=== PATIENT | female | born 1990 | race Caucasian/White ===

== ENCOUNTER 2018-03-29 10:11 | Emergency (ER) | payer OTHER ==
--- NOTE | 2018-03-29 10:37 | EDPHY ---
H & P Stated Complaint: wants mental health exam, SI Source: Patient Exam Limitations: No limitations - Personal History LMP (Females 10-55): Over 28 Days Ago Current Tetanus/Diphtheria Vaccine: Unsure Current Tetanus Diphtheria and Acellular Pertussis (TDAP): Unsure - Medical/Surgical History Hx Asthma: No Hx Chronic Respiratory Disease: No Hx Diabetes: No Hx Cardiac Disease: No Hx Renal Disease: No Hx Cirrhosis: No Hx Alcoholism: No Hx HIV/AIDS: No Hx Splenectomy or Spleen Trauma: No Other PMH: depression/anxiety not diagnosed - Family History Significant Family History: No pertinent family hx - Social History Smoking Status: Never smoked Alcohol Use: Sober Drug Use: Marijuana Time Seen by Provider: 03/29/18 10:31 HPI/ROS: CHIEF COMPLAINT: Suicidal ideations HISTORY OF PRESENT ILLNESS: Patient is a 27-year-old female who he reports having history of mild depression but no formal diagnosis and no medications. Her symptoms primarily began a year ago after the break-up of her boyfriend of 5 years. 1 week ago he saw picture of this boy with a new girlfriend and this made her extremely depressed. On Thursday she was playing with her roommates hunting rifle and trying to figure out how to shoot herself. She states that she chickened out. She has remained depressed however in today brought herself to the emergency department. She states that she has been drinking more heavily recently. No other drugs or substances. Severity: Moderate Modifying factors: None REVIEW OF SYSTEMS: Constitutional: denies: chills, fever, recent illness, recent injury EENTM: denies: blurred vision, double vision, nose congestion Respiratory: denies: cough, shortness of breath Cardiac: denies: chest pain, irregular heart rate, lightheadedness, palpitations Gastrointestinal/Abdominal: denies: abdominal pain, diarrhea, nausea, vomiting, blood streaked stools Genitourinary: denies: dysuria, frequency, hematuria, pain Musculoskeletal: denies: joint pain, muscle pain Skin: denies: lesions, rash, jaundice, bruising Neurological: denies: headache, numbness, paresthesia, tingling, dizziness, weakness Hematologic/Lymphatic: denies: blood clots, easy bleeding, easy bruising Immunologic/allergic: denies: HIV/AIDS, transplant 10 systems reviewed and negative except as noted EXAM: GENERAL: Well-appearing, well-nourished and in no acute distress. HEAD: Atraumatic, normocephalic. EYES: Pupils equal round and reactive to light, extraocular movements intact, sclera anicteric, conjunctiva are normal. ENT: TMs normal, nares patent, oropharynx clear without exudates. Moist mucous membranes. NECK: Normal range of motion, supple without lymphadenopathy or JVD. LUNGS: Breath sounds clear to auscultation bilaterally and equal. No wheezes rales or rhonchi. HEART: Regular rate and rhythm without murmurs, rubs or gallops. ABDOMEN: Soft, nontender, normoactive bowel sounds. No guarding, no rebound. No masses appreciated. BACK: No CVA tenderness, no spinal tenderness, step-offs or deformities EXTREMITIES: Normal range of motion, no pitting or edema. No clubbing or cyanosis. NEUROLOGICAL: Cranial nerves II through XII grossly intact. Normal speech, normal gait. 5/5 strength, normal movement in all extremities, normal sensation , normal reflexes PSYCH: Decreased affect, answers questions appropriately. SKIN: Warm, dry, normal turgor, no visible rashes or lesions. (Sonny Simpson) Constitutional: Initial Vital Signs Temperature (C) 36.6 C 03/29/18 10:17 Heart Rate 109 H 03/29/18 10:17 Respiratory Rate 16 03/29/18 10:17 O2 Sat (%) 97 03/29/18 10:17 O2 Delivery Mode Room Air Allergies/Adverse Reactions: No Known Allergies Allergy (Unverified 03/29/18 10:24) Home Medications: Medication Instructions Recorded Sertraline HCl 03/29/18 Medical Decision Making ED Course/Re-evaluation: I have placed the patient on an M1 hold. She does have access to a firearm. 3:00 p.m. Care transferred to Dr. Darvin Morgan. Pending evaluation. (Sonny Simpson) Differential Diagnosis: Partial list of the Differential diagnosis considered include but were not limited to; suicidal ideation the, depression, intoxication and although unlikely based on the history and physical exam, I also considered schizophrenia , psychosis. (Sonny Simpson) Other Provider: 15:00 I assumed care of this patient at shift change. Pending placement. 17:21 Patient accepted at [facility]. Accepting physician Dr. Fady Adler. (Darvin Morgan) - Data Points Laboratory Results: Laboratory Results 03/29/18 11:15 03/29/18 11:15 Medications Given: Discontinued Medications Lorazepam (Ativan) 1 mg PO EDNOW ONE Stop: 03/29/18 15:32 Last Admin: 03/29/18 15:33 Dose: 1 mg Lorazepam (Ativan Injection) 1 mg IVP EDNOW ONE Stop: 03/29/18 18:18 Last Admin: 03/29/18 18:39 Dose: Not Given Lorazepam (Ativan) 1 mg PO EDNOW ONE Stop: 03/29/18 18:40 Last Admin: 03/29/18 18:42 Dose: 1 mg Departure - Departure Disposition: Other Psych, Not [facility] Clinical Impression: Suicidal ideation Alcohol intoxication Qualifiers: Complication of substance-induced condition: uncomplicated Qualified Code(s): F10.920 - Alcohol use, unspecified with intoxication, uncomplicated Condition: Fair Referrals: NONE *PRIMARY CARE P,. [Primary Care Provider] - As per Instructions
[2018-03-29 11:28] LABS: PLATELET COUNT 353 10^3/uL (150-400)
[2018-03-29] MEDS ORDERED: LORazepam 1 MG TAB PO ONE ×2 (15:31→18:39)
--- NOTE | 2018-03-29 17:07 | ASMTTLCEVL ---
TLC Evaluation - Basic Information Evaluation Start Date and 03/29/2018 01:00 PM Time Hospital Status Answers: M1 Hold 72-hr M1 Hold Start Date 03/29/2018 10:40 AM and Time Patient statement Notes: " Last week I saw a pic my ex boyfriend with another girl and got real upset about it. I drank for a few days, stopped going to work or doing anything." Narrative Notes: Pt is a 27 year old female who was brought to [facility] by her roommate at the encouragement of her mother after pt has been depressed since the break up with her boyfriend in August 2017. Pt stated 1 week ago, she saw a pic of her ex-boyfriend with a new girl and she has had increased depression and suicidal thoughts. This past Thursday, she was playing with her roommates shot gun, thinking about shooting herself but she did not know how to use it. Pt stated on , " I just really wanted to ." Pt stated she did not know if it was loaded. Pt stated she did not know how to use the gun. Pt stated she still wants to but would never act on it. Pt's mother Sammi, stated she "has never seen her this bad." Sammi stated she gave pt some sertraline to start taking and told pt to get into see a doctor to get a prescription but pt never did. Sammi stated that she believes pt has problematic drinking and has been brought home from co-workers intoxicated. Diagnosis History Notes: None reported. Prior suicide attempts Notes: No prior suicide attempts. Prior hospitalizations Notes: No prior hospitalizations. Treatment Responses Notes: N/A History of violence Notes: Pt denied any history of violence or thoughts of wanting to harm others. Therapist: Pt stated she has recently reached out and met with a couple of therapist. Psychiatrist: None Medications (name, dosage, route, freq uency) Notes: Sertraline- 25mg (not prescribed for her) pt has been taking this for about a week but stopped a few days ago. Pt's mother gave this to her. Allergies/Reaction Notes: Nka Sleep Notes: Pt stated for the past week she's been " trying to sleep a lot." Appetite Notes: Pt stated her appetite fluctuates a lot. Medical/Surgical history Notes: None reported. Substance use history (frequency, intensity, his tory, duration) Notes: Pt reports she has a problem with "over drinking." Pt stated she has used alcohol for coping in the past and states she has been drinking for about 10 years. Pt states since this past Thursday, she has been drinking every day and stated she drinks a glass of wine or beer "every hour." Per Moc, "in the past 4 days she drank 50 beers and a 5th of gin." Pt denied any drug use. Utox was negative for all substances. Bal was.240. Pt denied any hx of W/D symptoms but told this ticket writer, " I do feel shaky now. I don't know if it is the alcohol or just anxiety." Family composition Notes: Pt has 2 brothers and 1 sister. Pt's brothers live in [place] and her sister lives in [place]. Pt's parents live in [place]. She reports having supportive parents. Need for family Answers: No participation in patient's care Family psychiatric/substance abuse history Notes: Pt stated " Yeah, basically my whole family." Pt stated her mother is a heavy drinker. Pt stated one of her brothers struggles with depression and the other with addiction to benzodiazepines. Pt stated her sister has bipolar disorder and anxiety. Developmental history Notes: Pt stated she grew up in [place], her parents are still . Pt stated, "My father is pretty stable." Pt denied any concussions. Pt denied ADD/ADHD dx. Pt denied any childhood abuse hx. Abuse concerns Answers: None Marital status/children Notes: Unmarried, no children. Living situation Notes: Pt lives with roommates in [place]. Sexual history/orientation Notes: Pt identifies as heterosexual. Peer support/family strengths Notes: Pt stated she has a good support system. Education level/history Notes: Pt received her B.A. from [employer] and has her FRANKLIN from [employer]. 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 Notes: None reported. Legal Notes: Pt sated she recently got a DUI in November 2017 and was recently sentenced. Pt stated she will be on probation. She currently is taking her alcohol education classes. Shinto/Spiritual Notes: None that would interfere with tx. Leisure Notes: Pt enjoys taking her dog on hikes and doing yoga. Collateral Notes: Mother- Sammi Roommate Trudy- [phone] Patient's strengths Answers: Insightful (Please select at least TWO strengths): Intelligent Supportive Family Willingness [facility] Evaluation - Mental Status Exam Appearance: Answers: Appropriate Eye Contact: Answers: Good/Direct Mood: Answers: Depressed Affect: Answers: Nervous Sad Behavior: Answers: Cooperative Speech: Answers: Relevant Logical Clear Coherent Thought Process: Answers: Organized Oriented Alert Insight: Answers: Good Judgement: Answers: Poor Depression Answers: Difficulty Concentrating Signs/Symptoms: Diminished Interest Flat Affect Hopelessness Sad Mood Hallucinations: Answers: None Current Stage of Change Answers: Precontemplation Pt reported to have Answers: No suicidal/self-injuring ideation/behavior? Pt reported to be making Answers: Yes suicidal/self-injuring threats? Pt reported to have Answers: No aggression/assault ideation/behavior? Pt reported to be making Answers: No aggression/assault threats? Pt exhibits inability to Answers: No care for self/grave disability? Ideation/behavior is Answers: No chronic? Patient has a specific Answers: No plan? Pt has access to means to Answers: No execute the plan? Ideation involves Answers: No serious/lethal intent? History of Answers: No suicidal/self-injuring ideation, behavior, or threats? History of Answers: No aggressive/assaultive ideation, behavior, or threats? History of serious Answers: No physical harm to self/others while in treatment setting? [facility] Evaluation - Suicide/Homicide Risk Suicide Risk Factors: Answers: < 20 or > 40 Years of Age Access to Firearms Alcohol/Heavy Drug Use Intoxication Legal Difficulties Single Homicide/violence risk Answers: None factors: Current Suicidal Answers: Yes Ideation? Current Suicide Ideation Pt states she has SI off and on Frequency: Current Suicidal Ideation Answers: Yes in the Past 48 Hours? Current Suicidal Ideation Answers: Yes in the Past Month? Current Suicidal Answers: Yes Ideation, Worst Ever? Suicide Internal Answers: Absence of Psychosis Protective Factors: Suicide External Answers: Responsibility to Pets Protective Factors: Social Support Ranking of patient's Answers: Severe suicidal risk: Ranking of patient's Answers: Low homicidal risk: [facility] Evaluation - Wrap-up BDI Total Score: 48 BDI Question #2 Score: 2 BDI Question #9 Score: 3 BSS Total Score: 6 AXIS I Diagnosis (include DSM-V and ICD-10 codes), must also be entered in [employer], which is the source of truth. Notes: Major Depressive Disorder, single episode, severe 296.23 (F32.2) Alcohol Use Disorder, moderate 303.90 (F10.20) In consultation with [facility] ED physician, Darvin Morgan MD and on-call psychiatrist, Radha Diaz MD, both concurred that pt appears to meet 27-65 criteria requiring psychiatric hospitalization as pt appears to be at risk of harm to self due to a mental illness condition. Evaluation End Date and 03/29/2018 02:00 PM Time (HH:IRISH): Date Signed: 03/29/2018 05:06 PM Electronically Signed By:Marlyn Turk
[2018-03-29] MEDS ORDERED: LORazepam 2 MG/ML INJ ONE (18:14)
[2018-03-29] MEDS ORDERED: LORazepam 2 MG/ML INJ IVP ONE (18:17)
[2018-03-29] MEDS ORDERED: LORazepam 1 MG TAB ONE (18:20)
--- NOTE | 2018-03-29 19:36 | ASMTTCLDSP ---
TLC Discharge Disposition Disposition: Answers: Transfer Discharge Concerns/Recommendations: Notes: In consultation with [facility] ED physician, Darvin Bowman MD and on-call psychiatrist, Radha Diaz MD, both concurred that pt appears to meet 27-65 criteria requiring psychiatric hospitalization as pt appears to be at risk of harm to self due to a mental illness condition. For Transfers, Accepting [facility] Facility: For Transfers, Accepting [facility] Psychiatrist: For Transfers, Reason Need dual dx Patient is Being Transferred: Date Signed: 03/29/2018 07:35 PM Electronically Signed By:Marlyn Turk
[2018-03-29 20:14] VITALS: BP 110/70
== END 2018-03-29 20:14 ==
DX: F10.129 Alcohol abuse with intoxication, unspecified (principal); R45.851 Suicidal ideations
CPT/HCPCS: 80305; G0480; J2060